=== PATIENT | male | born 1960 | race Caucasian/White ===

== ENCOUNTER 2021-07-25 16:48 | Observation (INO) | payer BC ==
[2021-07-25] MEDS ORDERED: ASPIRIN 81 MG PO STA (17:18)
[2021-07-25] MEDS ORDERED: ONDANSETRON 4 MG/2 ML VIAL IVP STA (17:21)
[2021-07-25] MEDS ORDERED: MORPHINE SULFATE 4 MG/ML SYRINGE IV STA (17:21)
--- NOTE | 2021-07-25 17:23 | ED ---
Chest Pain HPI - General Chief Complaint: Chest Pain Stated Complaint: Chest pain Time Seen by Provider: 07/25/21 17:11 Source: patient, RN notes reviewed, old records reviewed Mode of arrival: ambulatory Limitations: no limitations - History of Present Illness Initial Comments: This is a pleasant 60-year-old male with history of diabetes and hypertension. He presents to the emergency department today complaining of chest pain which started this morning. Patient describing a sharp and intermittent pain to the center of his chest. Patient also has a headache at the same time. Patient states the pain is exacerbated when he touches around with his right arm as well as when he stands up. Patient has no history of cardiac disease. No recent history of cardiac testing. He denies any other associated symptoms. No diaphoresis. No shortness of breath. No nausea. Pain really does not radiate. There is a family history of heart disease in his father. No headache, no fever or chills, no changes in vision or hearing, no sore throat or difficulty with speech, no neck pain, no chest pain or shortness of breath, n o abdominal pain, no nausea or vomiting, no changes in urination or bowel movements, no numbness or tingling, no extremity pain, no skin rashes or lesions. - Related Data Home Medications Medication Instructions Recorded Confirmed Aspirin 81 mg PO DAILY 07/25/21 07/25/21 Atorvastatin Calcium [Lipitor] 20 mg PO HS 07/25/21 07/25/21 Cholecalciferol (Vitamin D3) 125 mcg PO DAILY 07/25/21 07/25/21 [Vitamin D3 (125 MCG = 5,000 IU)] Pioglitazone HCl 15 mg PO DAILY 07/25/21 07/25/21 glipiZIDE XL [Glucotrol XL] 2.5 mg PO DAILY 07/25/21 07/25/21 lisinopriL [Prinivil] 20 mg PO BID 07/25/21 07/25/21 metFORMIN HCL [Glucophage] 1,000 mg PO BID 07/25/21 07/25/21 valACYclovir HCL [Valtrex] 1,000 mg PO TID 07/25/21 07/25/21 Allergies Allergy/AdvReac Type Severity Reaction Status Date / Time azithromycin Allergy Unknown Verified 07/25/21 18:03 [From Zithromax Z-Kenneth] Review of Systems ROS Statement: Those systems with pertinent positive or pertinent negative responses have been documented in the HPI. ROS Other: All systems not noted in ROS Statement are negative. Past Medical History Past Medical History: Diabetes Mellitus, Hyperlipidemia, Hypertension History of Any Multi-Drug Resistant Organisms: None Reported Past Surgical History: Hernia Repair Past Psychological History: No Psychological Hx Reported Smoking Status: Never smoker Past Alcohol Use History: Rare Past Drug Use History: None Reported General Exam - General Exam Comments Initial Comments: Healthy-appearing 60-year-old male in no significant distress. Patient does not appear to be L or toxic. Vital signs reviewed. Limitations: no limitations General appearance: alert, in no apparent distress Head exam: Present: atraumatic, normocephalic, normal inspection Eye exam: Present: normal appearance, PERRL, EOMI. Absent: scleral icterus, conjunctival injection, periorbital swelling ENT exam: Present: normal exam, mucous membranes moist Neck exam: Present: normal inspection. Absent: tenderness, meningismus, lymphadenopathy Respiratory exam: Present: normal lung sounds bilaterally. Absent: respiratory distress, wheezes, rales, rhonchi, stridor Cardiovascular Exam: Present: regular rate, normal rhythm, normal heart sounds. Absent: systolic murmur, diastolic murmur, rubs, gallop, clicks GI/Abdominal exam: Present: soft, normal bowel sounds. Absent: distended, tenderness, guarding, rebound, rigid Extremities exam: Present: normal inspection, full ROM, normal capillary refill. Absent: tenderness, pedal edema, joint swelling, calf tenderness Back exam: Present: normal inspection Neurological exam: Present: alert, oriented X3, CN II-XII intact Psychiatric exam: Present: normal affect, normal mood Skin exam: Present: warm, dry, intact, normal color. 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 Chest Pain MDM - Differential Diagnosis AMI, ACS, PE, Pericarditis, Pneumonia, Pleurisy-Other, Chest Wall Syndrome - MDM Patient's workup here is essentially negative. However the patient does have significant risk factors for coronary or pulmonary disease. Patient will be admitted for observation and serial troponins. Case discussed with the hospitalist in detail, Dr. Frank. The case was discussed in detail with ED attending physician. Presentation, findings, treatment plan discussed in detail. She was given aspirin in the ED. Disposition Clinical Impression: Chest pain, Hypomagnesemia Disposition: ADMITTED IP TO THIS HOSP
[2021-07-25 17:46] LABS: HCT 43.7 % (39.0-53.0); HGB 14.7 gm/dL (13.0-17.5); MCH 32.6 pg (25.0-35.0); MCHC 33.7 g/dL (31.0-37.0); MCV 96.7 fL (80.0-100.0); RBC 4.52 m/uL (4.30-5.90); RDW 14.7 % (11.5-15.5); WBC 7.6 k/uL (3.8-10.6)
[2021-07-25 17:47] LABS: Basophils % (A) 0 %; Eosinophils # (A) 0.1 k/uL (0-0.7); Eosinophils % (A) 1 %; Lymphocytes # (A) 1.5 k/uL (1.0-4.8); Lymphocytes % (A) 20 %; Mean Platelet Volume 10.7; Monocytes # (A) 0.4 k/uL (0-1.0); Monocytes % (A) 5 %; Neutrophils # (A) 5.5 k/uL (1.3-7.7); Neutrophils % (A) 72 %; Platelet Count 206 k/uL (150-450)
[2021-07-25 17:56] LABS: Albumin 4.6 g/dL (3.5-5.0); Calcium 10.1 mg/dL (8.4-10.2); Magnesium 1.3 mg/dL (1.6-2.3); Potassium 4.8 mmol/L (3.5-5.1); Total Bilirubin 0.6 mg/dL (0.2-1.3); Total Protein 8.2 g/dL (6.3-8.2)
--- NOTE | 2021-07-25 17:58 | XR ---
EXAMINATION TYPE: XR chest 2V DATE OF EXAM: 07/25/2021 5:45 PM COMPARISON:Chest radiographs from 09/28/2013 CLINICAL INDICATION:Male, 60 years old with history of Chest Pain; TECHNIQUE: Frontal and lateral views of the chest. FINDINGS: Lungs/Pleura: Low lung volumes are present. There is basilar atelectasis bilaterally. There is no leatha dence of pleural effusion, focal consolidation, or pneumothorax. Pulmonary vascularity: Pulmonary vascular congestion. Heart/mediastinum: Cardiomediastinal silhouette is enlarged. Musculoskeletal: No acute osseous pathology. IMPRESSION: 1. No acute cardiopulmonary disease/process.
[2021-07-25 18:04] LABS: Partial Thromboplastin Time 27.2 sec (22.0-30.0); Prothrombin Time 10.6 sec (9.0-12.0)
[2021-07-25] MEDS ORDERED: ACETAMINOPHEN TAB 325 MG TAB PO PRN (19:32)
[2021-07-25] MEDS ORDERED: NITROGLYCERIN SL TABS 0.4 MG TAB SUBLINGUAL PRN (19:32)
[2021-07-25] MEDS ORDERED: ATORVASTATIN 20 MG TAB PO STA (19:37)
[2021-07-25] MEDS: SODIUM CHLORIDE 0.9% 1,000 ML IV SCH (20:02)
[2021-07-25] MEDS: lisinopriL 20 MG TAB PO SCH (20:02)
[2021-07-25] MEDS: ENOXAPARIN 40 MG/0.4 ML SYRINGE SQ SCH (20:02)
[2021-07-25 22:13] LABS: Glucose,Whole Blood 126 mg/dL (75-99)
[2021-07-25] MEDS: MAGNESIUM SULFATE-D5W PMX 1 GM in DEXTROSE/WATER 1 100ML.BAG IVPB SCH ×2 (22:18→23:33)
[2021-07-26 02:05] LABS: Glucose,Whole Blood 161 mg/dL (75-99)
[2021-07-26 07:39] LABS: Glucose,Whole Blood 144 mg/dL (75-99)
[2021-07-26 08:02] VITALS: BP 113/70; PULSE 86; RESP 16; TEMP 98.2
[2021-07-26] MEDS: ENOXAPARIN 40 MG/0.4 ML SYRINGE SQ SCH (08:28)
[2021-07-26] MEDS: lisinopriL 20 MG TAB PO SCH (08:28)
[2021-07-26] MEDS ORDERED: ASPIRIN 81 MG PO SCH (09:00)
[2021-07-26] MEDS ORDERED: ASPIRIN 325 MG TAB PO SCH (09:00)
[2021-07-26 10:14] LABS: Chol/HDL Ratio 4.48 Ratio; LDL Cholesterol,Calculated 108.2 mg/dL (0.0-131.0)
[2021-07-26] MEDS ORDERED: metFORMIN 500 MG TAB PO SCH (11:00)
[2021-07-26] MEDS ORDERED: valACYclovir HCL 1,000 MG TABLET PO SCH (11:00)
[2021-07-26] MEDS ORDERED: PIOGLITAZONE 15 MG TAB PO SCH (11:00)
[2021-07-26] MEDS ORDERED: CHOLECALCIFEROL 125 MCG (5000 IU) TABLET PO SCH (11:00)
--- NOTE | 2021-07-26 11:52 | ECHOF ---
Referral Reason:chest pain, lv function, + shingles MEASUREMENTS -------- HEIGHT: 182.9 cm WEIGHT: 106.6 kg BP: RVIDd: 3.2 cm (< 3.3) IVSd: 1.2 cm (0.6 - 1.1) LVIDd: 5.0 cm (3.9 - 5.3) LVPWd: 1.0 cm (0.6 - 1.1) IVSs: 1.6 cm LVIDs: 3.8 cm LVPWs: 1.4 cm LAESV Index (A-L): 25.11 ml/m Ao Diam: 3.9 cm (2.0 - 3.7) AV Cusp: 2.2 cm (1.5 - 2.6) MV E Saeed: 0.52 m/s MV DecT: 225 ms MV A Saeed: 0.60 m/s MV E/A Ratio: 0.87 RAP: 5.00 mmHg RVSP: 13.32 mmHg FINDINGS -------- Sinus rhythm. This was a technically adequate study. LV size, wall thickness and systolic function are normal, with an EF greater than 55%. The left mary tricular size is normal. The right ventricle is normal in size. The left atrial size is normal. The right atrial size is normal. The aortic valve is trileaflet, and appears structurally normal. No aortic stenosis or regurgitation. Mild mitral regurgitation is present. Mild tricuspid regurgitation present. Right ventricular systolic pressure is normal at < 35 mmHg. The pulmonic valve was not well visualized. Echo free space indicative of a pericardial fat pad. CONCLUSIONS -------- 1. LV size, wall thickness and systolic function are normal, with an EF greater than 55%. 2. The left ventricular size is normal. 3. The right ventricle is normal in size. 4. The left atrial size is normal. 5. The right atrial size is normal. 6. The aortic valve is trileaflet, and appears structurally normal. No aortic stenosis or regurgitati on. 7. Mild mitral regurgitation is present. 8. Mild tricuspid regurgitation present. 9. The pulmonic valve was not well visualized. 10. Echo free space indicative of a pericardial fat pad. JUVENILE OFFICER: Tori Mortensen RDCS
[2021-07-26 12:19] LABS: Glucose,Whole Blood 138 mg/dL (75-99)
--- NOTE | 2021-07-26 12:26 | P.CRDCN ---
History of Present Illness Consult date: 07/26/21 History of present illness: HISTORY OF PRESENT ILLNESS: This is a 60-year-old male with a past medical history significant for hypertension, hyperlipidemia, and diabetes. 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 We have been asked to see the patient in consultation for chest pain. Patient examined at the bedside. Patient states yesterday he woke up with chest pain increased throughout the day. He describes the pain as a heartburn type sensation. He denies any radiation of pain. Denies any shortness of breath. He states he took Tylenol which helped for a few hours and then the pain came back. He reports the pain was slightly worse with a deep breath. He denies seeing pain with chest wall palpation. Patient does report a family history of coronary artery disease and states his dad had a heart attack in his 40s. The patient is a nonsmoker and reports rare alcohol use. Patient also reports she was diagnosed with shingles of his right lateral chest wall on 07/16/2021 and has been on treatment since that time. EKG reveals sinus mechanism with no signs of acute ischemia Chest xray negative for acute process Laboratory data: WBC 7.6. Hemoglobin 14.7. Platelet count 206. D-dimer 0.34. Sodium 138. Potassium 4.8. BUN 20. Creatinine 1.14. Troponin negative 3. Current home cardiac medications include aspirin 81 mg daily, lisinopril 29 g twice a day, and atorvastatin 20 mg at night. REVIEW OF SYSTEMS: At the time of my exam: CONSTITUTIONAL: Denies fever or chills. HEENT: Denies blurred vision, vision changes, or eye pain. Denies hemoptysis CARDIOVASCULAR: Denies chest pain. Denies orthopnea. Denies PND. Denies palpitations RESPIRATORY: Denies shortness of breath. GASTROINTESTINAL: Denies abdominal pain. Denies nausea or vomiting. HEMATOLOGIC: Denies bleeding disorders. GENITOURINARY: Denies any blood in urine. SKIN: Denies pruitis. Denies rash. PHYSICAL EXAM: VITAL SIGNS: Reviewed. GENERAL: Well-developed in no acute distress. HEENT: Head is normocephalic. Pupils are equal, round. Sclerae anicteric. Mucous membranes of the mouth are moist. Neck supple. No JVD or thyromegaly LUNGS: Respirations even and unlabored. Lungs essentially clear to auscultation bilaterally. HEART: Regular rate and rhythm. S1 and S2 heard. ABDOMEN: Soft. Nondistended. Nontender. EXTREMITIES: Normal range of motion. No clubbing or cyanosis. Peripheral pulse s intact. No lower extremity edema NEUROLOGIC: Awake and alert. Oriented x 3. ASSESSMENT: Chest pain, troponins negative 3 Hypertension Hyperlipidemia Diabetes Shingles, diagnosed 07/16/2021 Family history of premature coronary artery disease PLAN: An acute coronary event has been ruled out Obtain 2-D echo to assess cardiac surgery and function Resume home cardiac medications Patient to undergo stress echocardiogram today to assess for ischemia Further recommendations when patient course Nurse practitioner note has been reviewed by physician. Signing provider agrees with the documented findings, assessment, and plan of care. Past Medical History Past Medical History: Diabetes Mellitus, Hyperlipidemia, Hypertension Additional Past Medical History / Comment(s): Shingles on right side. History of Any Multi-Drug Resistant Organisms: None Reported Past Surgical History: Hernia Repair Past Anesthesia/Blood Transfusion Reactions: No Reported Reaction Past Psychological History: No Psychological Hx Reported Smoking Status: Never smoker Past Alcohol Use History: Rare Past Drug Use History: None Reported Medications and Allergies Home Medications Medication Instructions Recorded Confirmed Type Aspirin 81 mg PO DAILY 07/25/21 07/25/21 History Atorvastatin Calcium [Lipitor] 20 mg PO HS 07/25/21 07/25/21 History Cholecalciferol (Vitamin D3) 125 mcg PO DAILY 07/25/21 07/25/21 History [Vitamin D3 (125 MCG = 5,000 IU)] Pioglitazone HCl 15 mg PO DAILY 07/25/21 07/25/21 History glipiZIDE XL [Glucotrol XL] 2.5 mg PO DAILY 07/25/21 07/25/21 History lisinopriL [Prinivil] 20 mg PO BID 07/25/21 07/25/21 History metFORMIN HCL [Glucophage] 1,000 mg PO BID 07/25/21 07/25/21 History valACYclovir HCL [Valtrex] 1,000 mg PO TID 07/25/21 07/25/21 History Allergies Allergy/AdvReac Type Severity Reaction Status Date / Time azithromycin Allergy Unknown Verified 07/25/21 18:03 [From Zithromax Z-Kenneth] Physical Exam Vitals: Vital Signs Temp Pulse Pulse Pulse Resp BP BP 07/26/21 07:00 98.2 F 86 16 113/70 07/26/21 02:00 98.8 F 90 15 100/67 07/25/21 22:03 90 16 07/25/21 22:00 98.7 F 94 16 126/80 07/25/21 20:04 76 16 138/84 07/25/21 18:31 100 18 160/102 07/25/21 17:36 90 07/25/21 16:55 97.5 F L 99 16 150/96 Pulse Ox 07/26/21 07:00 92 L 07/26/21 02:00 93 L 07/25/21 22:03 07/25/21 22:00 95 07/25/21 20:04 96 07/25/21 18:31 95 07/25/21 17:36 07/25/21 16:55 96 Intake and Output 07/25/21 07/26/21 07/26/21 22:59 06:59 14:59 Intake Total 0 Balance 0 Intake: Oral 0 Other: Voiding Method Toilet # Voids 1 1 Weight 106.594 kg Results 07/25/21 17:35 07/25/21 17:35 Cardiac Enzymes 07/25/21 07/25/21 07/25/21 Range/Units 17:35 17:35 21:26 AST 35 (17-59) U/L Troponin I <0.012 <0.012 (0.000-0.034) ng/mL 07/26/21 Range/Units 00:16 AST (17-59) U/L Troponin I <0.012 (0.000-0.034) ng/mL Coagulation 07/25/21 Range/Units 17:35 PT 10.6 (9.0-12.0) sec APTT 27.2 (22.0-30.0) sec CBC 07/25/21 Range/Units 17:35 WBC 7.6 (3.8-10.6) k/uL RBC 4.52 (4.30-5.90) m/uL Hgb 14.7 (13.0-17.5) gm/dL Hct 43.7 (39.0-53.0) % Plt Count 206 (150-450) k/uL Comprehensive Metabolic Panel 07/25/21 Range/Units 17:35 Sodium 138 (137-145) mmol/L Potassium 4.8 (3.5-5.1) mmol/L Chloride 104 (98-107) mmol/L Carbon Dioxide 23 (22-30) mmol/L BUN 20 (9-20) mg/dL Creatinine 1.14 (0.66-1.25) mg/dL Glucose 111 H (74-99) mg/dL Calcium 10.1 (8.4-10.2) mg/dL AST 35 (17-59) U/L ALT 36 (4-49) U/L Alkaline Phosphatase 80 (38-126) U/L Total Protein 8.2 (6.3-8.2) g/dL Albumin 4.6 (3.5-5.0) g/dL Current Medications Generic Name Dose Route Start Last Admin Trade Name Freq PRN Reason Stop Dose Admin Acetaminophen 650 mg 07/25/21 19:32 07/25/21 23:34 Acetaminophen Tab 325 Mg Tab PO 650 mg Q4HR PRN Administration Pain Aspirin 325 mg 07/26/21 09:00 Aspirin 325 Mg Tab PO DAILY NANCIE Enoxaparin Sodium 40 mg 07/25/21 19:45 07/25/21 20:02 Enoxaparin 40 Mg/0.4 Ml Syringe SQ 40 mg DAILY NANCIE Administration Sodium Chloride 1,000 mls @ 75 mls/hr 07/25/21 19:45 07/25/21 20:02 Saline 0.9% IV 75 mls/hr .[id number] NANCIE Administration Lisinopril 20 mg 07/25/21 21:00 07/25/21 20:02 Lisinopril 20 Mg Tab PO 20 mg BID NANCIE Administration Nitroglycerin 0.4 mg 07/25/21 19:32 Nitroglycerin Sl Tabs 0.4 Mg Tab SUBLINGUAL Q5M PRN Chest Pain Intake and Output 07/25/21 07/26/21 07/26/21 22:59 06:59 14:59 Intake Total 0 Balance 0 Intake: Oral 0 Other: Voiding Method Toilet # Voids 1 1 Weight 106.594 kg 07/25/21 17:35 07/25/21 17:35
[2021-07-26] MEDS: SODIUM CHLORIDE 0.9% 1,000 ML IV SCH (13:45)
--- NOTE | 2021-07-26 19:27 | P.HPIM ---
History of Present Illness H&P Date: 07/26/21 Chief Complaint: Chest pain This is a very pleasant 60-year-old patient who follows with Dr. Macie Berry. Chronic stable medical conditions includes diabetes, hypertension, hyperlipidemia. Patient also currently recovering from shingles on the right side of the chest is currently taking valacyclovir. 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 Patient woke up yesterday morning with the pain on the just left lateral side of the sternum sharp stabbing pain. As a day progressed and became rather severe. It was worse with movement of the arm and body movement. No associated dizziness lightheadedness shortness of breath and perspiration. Not related to activity. Simply to body movement. Given his cardiac risk factor decided to come in and get checked out. Review of systems: GEN.: None EYES: None HEENT: None NECK: None RESPIRATORY: None CARDIOVASCULAR: As above GASTROINTESTINAL: None GENITOURINARY: None MUSCULOSKELETAL: None LYMPHATICS: None HEMATOLOGICAL: None PSYCHIATRY: None NEUROLOGICAL: None Past medical history to include: Diabetes mellitus, hypertension, hyperlipidemia, herpes zoster of the chest right site Social history: . Does not smoke or drink alcohol. Has a [employer]. Family history: Reviewed, noncontributory to presentation Physical examination: VITAL SIGNS: 98.2, 86, 16, 113/70, 92% room air GENERAL: BMI 31.9, sitting up in a chair, awake, comfortable. EYES: Pupils equal. Conjunctiva normal. HEENT: External appearance of nose and ears normal, oral cavity grossly normal. NECK: JVD not raised; masses not palpable. HEART: First and second heart sounds are normal; no edema. LUNGS: Respiratory rate normal; clear to auscultation. ABDOMEN: Soft, nontender, liver spleen not palpable, no masses palpable. PSYCH: Alert and oriented x3; mood and affect normal. MUSCULOSKELETAL:No Clubbing/cyanosis;muscles-grossly intact. Right chest wall healing lesions of herpes zoster NEUROLOGICAL: Cranial nerves grossly intact; no facial asymmetry, power and sensation grossly intact. LYMPHATICS: No lymph nodes palpable in the axilla and neck INVESTIGATIONS, reviewed in the clinical context: White count 7.6 hemoglobin 14.7 platelets 206 potassium 4.8 BUN 20 creatinine 1.14 Troponin I 3 negative LDL 108 Lipase 151 Coronavirus [PCR]: Not detected EKG tracing personally reviewed by me-normal sinus rhythm Chest x-ray film personally reviewed by me-no obvious infiltrates. Assessment and plan: -Anterior chest wall pain, localized. Does not sound cardiac. Likely Acute costochondritis. Worse with body movement. Given cardiac risk factors to rule out a cardiac cause though felt to be unlik melinda. -Obesity BMI 31.9 Weight loss measures -Diabetes mellitus type 2, on oral hypoglycemics Glucophage thousand milligrams twice a day, Glucotrol XL 2.5 mg a day, pioglitazone 50 mg daily -Hyperlipidemia Lipitor 20 mg daily at bedtime -Essential hypertension. We'll 20 mg twice a day -Acute herpes zoster on the right chest wall, recovering Valtrex thousand milligrams 3 times a day Telemetry. Home medications resumed. Cardiology consulted. Ordered 2-D echocardiogram and a stress test. Care was discussed with the patient. Questions answered. Past Medical History Past Medical History: Diabetes Mellitus, Hyperlipidemia, Hypertension Additional Past Medical History / Comment(s): Shingles on right side. History of Any Multi-Drug Resistant Organisms: None Reported Past Surgical History: Hernia Repair Past Anesthesia/Blood Transfusion Reactions: No Reported Reaction Past Psychological History: No Psychological Hx Reported Smoking Status: Never smoker Past Alcohol Use History: Rare Past Drug Use History: None Reported Medications and Allergies Home Medications Medication Instructions Recorded Confirmed Type Aspirin 81 mg PO DAILY 07/25/21 07/25/21 History Atorvastatin Calcium [Lipitor] 20 mg PO HS 07/25/21 07/25/21 History Cholecalciferol (Vitamin D3) 125 mcg PO DAILY 07/25/21 07/25/21 History [Vitamin D3 (125 MCG = 5,000 IU)] Pioglitazone HCl 15 mg PO DAILY 07/25/21 07/25/21 History glipiZIDE XL [Glucotrol XL] 2.5 mg PO DAILY 07/25/21 07/25/21 History lisinopriL [Prinivil] 20 mg PO BID 07/25/21 07/25/21 History metFORMIN HCL [Glucophage] 1,000 mg PO BID 07/25/21 07/25/21 History valACYclovir HCL [Valtrex] 1,000 mg PO TID 07/25/21 07/25/21 History Allergies Allergy/AdvReac Type Severity Reaction Status Date / Time azithromycin Allergy Unknown Verified 07/25/21 18:03 [From [employer]] Physical Exam Vitals: Vital Signs Temp Pulse Pulse Pulse Resp BP BP 07/26/21 07:00 98.2 F 86 16 113/70 07/26/21 02:00 98.8 F 90 15 100/67 07/25/21 22:03 90 16 07/25/21 22:00 98.7 F 94 16 126/80 07/25/21 20:04 76 16 138/84 07/25/21 18:31 100 18 160/102 07/25/21 17:36 90 07/25/21 16:55 97.5 F L 99 16 150/96 Pulse Ox 07/26/21 07:00 92 L 07/26/21 02:00 93 L 07/25/21 22:03 07/25/21 22:00 95 07/25/21 20:04 96 07/25/21 18:31 95 07/25/21 17:36 07/25/21 16:55 96 Intake and Output 07/25/21 07/26/21 07/26/21 22:59 06:59 14:59 Intake Total 0 Balance 0 Intake: Oral 0 Other: Voiding Method Toilet # Voids 1 1 Weight 106.594 kg Results CBC & Chem 7: 07/25/21 17:35 07/25/21 17:35 Labs: Abnormal Lab Results - Last 24 Hours (Table) 07/25/21 07/25/21 07/25/21 Range/Units 17:35 17:35 22:11 Glucose 111 H (74-99) mg/dL POC Glucose (mg/dL) 126 H (75-99) mg/dL Magnesium 1.3 L (1.6-2.3) mg/dL Triglycerides 228.00 H (0.00-149.00) mg/dL VLDL Cholesterol, Calc 45.60 H (5.00-40.00) mg/dL 07/26/21 07/26/21 Range/Units 02:02 07:30 Glucose (74-99) mg/dL POC Glucose (mg/dL) 161 H 144 H (75-99) mg/dL Magnesium (1.6-2.3) mg/dL Triglycerides (0.00-149.00) mg/dL VLDL Cholesterol, Calc (5.00-40.00) mg/dL Thrombosis Risk Factor Assmnt - Choose All That Apply Each Factor Represents 1 point: Obesity (BMI >25) Each Risk Factor Represents 2 Points: Age 61-74 years Thrombosis Risk Factor Assessment Total Risk Factor Score: 3 Thrombosis Risk Factor Assessment Level: Moderate Risk
--- NOTE | 2021-07-26 19:29 | P.DS ---
Providers Date of admission: 07/25/21 19:45 Expected date of discharge: 07/26/21 Attending physician: Dylon Frank Primary care physician: Mac[facility] Course: Chief Complaint: Chest pain This is a very pleasant 60-year-old patient who follows with Dr. Macie Berry. Chronic stable medical conditions includes diabetes, hypertension, hyperlipidemia. Patient also currently recovering from shingles on the right side of the chest is currently taking valacyclovir. 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 Patient woke up yesterday morning with the pain on the just left lateral side of the sternum sharp stabbing pain. As a day progressed and became rather severe. It was worse with movement of the arm and body movement. No associated dizziness lightheadedness shortness of breath and perspiration. Not related to activity. Simply to body movement. Given his cardiac risk factor decided to come in and get checked out. Patient underwent the stress echocardiogram. Reviewed by cartilage. Negative. Cleared for discharge. Cause felt to be acute costochondritis Consultation: Dr. TIA Baltazar from cardiology Past medical history to include: Diabetes mellitus, hypertension, hyperlipidemia, herpes zoster of the chest right site Social history: . Does not smoke or drink alcohol. Has a [employer]. Family history: Reviewed, noncontributory to presentation Physical examination: VITAL SIGNS: 98.2, 86, 16, 113/70, 92% room air GENERAL: BMI 31.9, sitting up in a chair, awake, comfortable. EYES: Pupils equal. Conjunctiva normal. HEENT: External appearance of nose and ears normal, oral cavity grossly normal. NECK: JVD not raised; masses not palpable. HEART: First and second heart sounds are normal; no edema. LUNGS: Respiratory rate normal; clear to auscultation. ABDOMEN: Soft, nontender, liver spleen not palpable, no masses palpable. PSYCH: Alert and oriented x3; mood and affect normal. MUSCULOSKELETAL:No Clubbing/cyanosis;muscles-grossly intact. Right chest wall healing lesions of herpes zoster NEUROLOGICAL: Cranial nerves grossly intact; no facial asymmetry, power and sensation grossly intact. LYMPHATICS: No lymph nodes palpable in the axilla and neck INVESTIGATIONS, reviewed in the clinical context: White count 7.6 hemoglobin 14.7 platelets 206 potassium 4.8 BUN 20 creatinine 1.14 Troponin I 3 negative LDL 108 Lipase 151 Coronavirus [PCR]: Not detected EKG tracing personally reviewed by me-normal sinus rhythm Chest x-ray film personally reviewed by me-no obvious infiltrates. Assessment and plan: -Anterior chest wall pain, localized. Does not sound cardiac. . Worse with body movement.: Likely Acute costochondritis Stress echocardiogram negative. -Obesity BMI 31.9 Weight loss measures -Diabetes mellitus type 2, on oral hypoglycemics Glucophage thousand milligrams twice a day, Glucotrol XL 2.5 mg a day, pioglitazone 50 mg daily -Hyperlipidemia Lipitor 20 mg daily at bedtime -Essential hypertension. We'll 20 mg twice a day -Acute herpes zoster on the right chest wall, recovering Valtrex thousand milligrams 3 times a day Disposition: Home Plan - Discharge Summary New Discharge Prescriptions: Continue Cholecalciferol (Vitamin D3) [Vitamin D3 (125 MCG = 5,000 IU)] 125 mcg PO DAILY glipiZIDE XL [Glucotrol XL] 2.5 mg PO DAILY Aspirin 81 mg PO DAILY lisinopriL [Prinivil] 20 mg PO BID valACYclovir HCL [Valtrex] 1,000 mg PO TID metFORMIN HCL [Glucophage] 1,000 mg PO BID Pioglitazone HCl 15 mg PO DAILY Atorvastatin Calcium [Lipitor] 20 mg PO HS Discharge Medication List Aspirin 81 mg PO DAILY 07/25/21 [History] Atorvastatin Calcium [Lipitor] 20 mg PO HS 07/25/21 [History] Cholecalciferol (Vitamin D3) [Vitamin D3 (125 MCG = 5,000 IU)] 125 mcg PO DAILY 07/25/21 [History] Pioglitazone HCl 15 mg PO DAILY 07/25/21 [History] glipiZIDE XL [Glucotrol XL] 2.5 mg PO DAILY 07/25/21 [History] lisinopriL [Prinivil] 20 mg PO BID 07/25/21 [History] metFORMIN HCL [Glucophage] 1,000 mg PO BID 07/25/21 [History] valACYclovir HCL [Valtrex] 1,000 mg PO TID 07/25/21 [History] Follow up Appointment(s)/Referral(s): James Baltazar MD [STAFF PHYSICIAN] - 08/12/21 3:30 pm Macie Berry MD [Primary Care Provider] - 1-2 days Patient Instructions/Handouts: Chest Pain (DC), Hypomagnesemia (DC) Discharge Disposition: HOME SELF-CARE
[2021-07-26] MEDS ORDERED: ATORVASTATIN 20 MG TAB PO SCH (21:00)
--- NOTE | 2021-07-29 08:45 | ECHOS ---
STRESS ECHOCARDIOGRAM INDICATIONS: Chest pain BASELINE HEART RATE: 82 BASELINE BLOOD PRESSURE: 105/79 MAXIMUM HEART RATE: 163 MAXIMUM BLOOD PRESSURE: 191/82 85% MPHR: 135 100% MPHR: 159 METS: 7.7 MAXIMUM STAGE REACHED: 3 TOTAL EXERCISE TIME: 6:42 CLINICAL INFORMATION: Baseline EKG revealed normal sinus rhythm without significant ST-T changes. There was J- point prominence and repolarization-type changes in II, III, aVF. Patient walked for 6 minutes 42 seconds, developed shortness of breath but did not have angina. EKG did not reveal any ST-segment changes to indicate ischemia. This is a negative stress test with fair exercise capacity. Maximal heart rate was 163 beats per minute, which is well above 100% of predicted maximal. His maximal blood pressure was 190/82. Baseline echo images revealed normal wall motion and wall thickening of all segments. At peak exercise there was good augmentation of left ventricular wall motion and wall thickening of all segments, suggesting that there is no evidence of any stress-induced ischemia on this study. FINAL IMPRESSION: 1. Fair exercise capacity with a negative stress test by EKG criteria. 2. Normal stress echocardiogram without evidence of ischemia. MMODL / IJN: [id number] /
== END 2021-07-26 14:20 | disposition home or self-care (01) ==
LOC: EC 16:48 → 6NMEDSUR 19:45
PROVIDERS: ADMIT Hospitalist; ATTEND Hospitalist
DX: R07.89 Other chest pain (principal); R07.2 Precordial pain; B02.9 Zoster without complications; I10 Essential (primary) hypertension; Z20.822 Contact with and (suspected) exposure to COVID-19; R51.9 Headache, unspecified; I08.1 Rheumatic disorders of both mitral and tricuspid valves; E66.9 Obesity, unspecified; Z68.31 Body mass index [BMI] 31.0-31.9, adult; E83.42 Hypomagnesemia; E11.9 Type 2 diabetes mellitus without complications; E78.5 Hyperlipidemia, unspecified; Z79.82 Long term (current) use of aspirin; Z79.84 Long term (current) use of oral hypoglycemic drugs; Z79.899 Other long term (current) drug therapy; Z88.1 Allergy status to other antibiotic agents; Z87.19 Personal history of other diseases of the digestive system; Z71.3 Dietary counseling and surveillance; Z82.49 Family history of ischemic heart disease and other diseases of the circulatory system
CPT/HCPCS: 96365; 96366; 96372 ×2; 96375; 99285; 36415; 93005; 93306; 93351; 85379; 83880; 80061; 80053; 83690; 83735; 84484 ×2; 85025; 85610; 85730; 87635; 71046; G0378 ×2; J2270; J2405; J1650 ×2; J3475

== ENCOUNTER 2024-12-14 08:29 | Day surgery (SDC) | payer BC, MEDICARE ==
[~2024-12-14 08:29] MED LIST: LIDOCAINE 1% (10MG/ML) FOR IV START INTRADERMA PRN
[2024-12-14] MEDS: IV FLUID CONTINUATION 1,000 ML IV ONE ×2 (08:51→10:01)
[2024-12-14 09:01] VITALS: TEMP 97.4
[2024-12-14 09:08] LABS: Glucose,Whole Blood 120 mg/dL (70-110)
[2024-12-14] MEDS: LACTATED RINGERS 1,000 ML IV SCH (09:10)
[2024-12-14] MEDS ORDERED: LIDOCAINE 2% (PF) 20 MG/ML 5 ML VIAL ONE (09:40)
[2024-12-14] MEDS ORDERED: PROPOFOL 10 MG/ML 20 ML VIAL IV ONE (09:40)
--- NOTE | 2024-12-14 09:58 | P.PCN ---
Date of Procedure: 12/14/24 Procedure(s) Performed: BRIEF HISTORY: Patient is a 64-year-old pleasant white male scheduled for an elective colonoscopy as a part of screening for colon cancer. PROCEDURE PERFORMED: Colonoscopy with snare polypectomy. PREOPERATIVE DIAGNOSIS: Screening for colon cancer. IV sedation per Anesthesia. PROCEDURE: After informed consent was obtained, the patient, was brought into the endoscopy unit. IV sedation was administered by Anesthesia under continuous monitoring. Digital rectal examination was normal. Initially the Olympus CF-160 flexible video colonoscope was then inserted in the rectum, gradually advanced into the cecum without any difficulty. Careful examination was performed as the scope was gradually being withdrawn. Ileocecal valve and the appendiceal orifice were visualized and appeared normal. Prep was excellent. Mucosa of the cecum, ascending colon, appeared normal. The transverse colon there was a 5 mm polyp that was removed by cold snare polypectomy. Rest of the transverse colon, descending colon, sigmoid colon, and rectum appeared normal. Retroflexion was performed in the rectum and no lesions were seen. The patient tolerated the procedure well. IMPRESSION: 5 mm transverse colon polyp status post cold snare polypectomy Rest of the colon appeared normal RECOMMENDATIONS: Findings of this examination were discussed with the patient as well as his family. He was advised to follow-up with the biopsy results. If the biopsy is adenoma he can do colonoscopy in 5 years..
[2024-12-14 10:23] VITALS: BP 91/64; PULSE 56; RESP 18
== END 2024-12-14 10:30 | disposition home or self-care (01) ==
LOC: ORWHC2ENDO 08:29
PROVIDERS: ATTEND Internal Medicine Gastroenterology
DX: Z12.11 Encounter for screening for malignant neoplasm of colon (principal); D12.3 Benign neoplasm of transverse colon; I10 Essential (primary) hypertension; E78.5 Hyperlipidemia, unspecified; F17.200 Nicotine dependence, unspecified, uncomplicated; E11.9 Type 2 diabetes mellitus without complications; Z88.8 Allergy status to other drugs, medicaments and biological substances; Z79.02 Long term (current) use of antithrombotics/antiplatelets; Z79.899 Other long term (current) drug therapy
CPT/HCPCS: 88305; 45385; J2704; J2003